=== PATIENT | male | born 1990 | race Caucasian/White ===

== ENCOUNTER → 2016-05-22 | Outpatient (CLI) | payer OTHER ==
[~2016-05-22] MED LIST: ALBUAER19 INH; HMLI SC; INSUINJ4 SQ
[2016-05-22 15:48] LABS: ALT/SGPT 29 U/L (12-78); BLOOD UREA NITROGEN 12 mg/dl (7-18); BUN/CREATININE RATIO 10.3 (10-20); CALCIUM 9.7 mg/dl (8.5-10.1); CARBON DIOXIDE 33 mmol/L (21-32); CHLORIDE 98 mmol/L (98-107); CHOLESTEROL 149 mg/dl (0-200); GLUCOSE 202 mg/dl (70-99); POTASSIUM 3.8 mmol/L (3.5-5.1); SODIUM 135 mmol/L (136-145); TRIGLYCERIDES 47 mg/dl (0-150); VERY LOW DENSITY LIPOPROT CALC 9 mg/dl
[2016-05-22 15:58] LABS: ALB/GLOB RATIO 1.5 (0.9-2); ALKALINE PHOSPHATASE 92 U/L (45-117); AST/SGOT 18 U/L (15-37); CHOLESTEROL/HDL RATIO 2.7; HDL CHOLESTEROL 55 mg/dl; LDL CHOLESTEROL CALCULATED 85 mg/dl
[2016-05-22 16:11] LABS: RATIO 15.8 mcg/mg (0-30.0)
[2016-05-23 06:26] LABS: ESTIMATED AVERAGE GLUCOSE 183 mg/dl; HA1C FLAG Normal (Normal)
== END | disposition home or self-care (01) ==
LOC: C.LAB1850 14:28
PROVIDERS: ATTEND Internal Medicine Endocrinology, Diabetes & Metabolism
DX: E10.9 Type 1 diabetes mellitus without complications (principal)

== ENCOUNTER → 2017-02-23 | Outpatient (CLI) | payer OTHER ==
[2017-02-24 07:07] LABS: ESTIMATED AVERAGE GLUCOSE 174 mg/dl; HA1C FLAG Normal (Normal)
== END | disposition home or self-care (01) ==
LOC: C.LAB1850 13:42
PROVIDERS: ATTEND Internal Medicine Endocrinology, Diabetes & Metabolism
DX: E10.9 Type 1 diabetes mellitus without complications (principal)